=== PATIENT | male | born 1945 | race Caucasian/White ===

== ENCOUNTER → 2018-04-08 09:17 | Outpatient (CLI) | payer MEDICARE, OTHER, SELFPAY ==
--- NOTE | 2018-04-08 09:22 | CA_ITS ---
PROCEDURE: 2-D M-mode and color Doppler study INDICATIONS FOR THE TEST: Chest pain COPD Heart Murmur Tobacco Smoking Palpitations Fatigue Syncope Edema Hypertension+Diabetes Mellitus Rheumatic Fever SOB MARTINEZ Obesity Hyperlipidemia+ Family History HD Additional History CAD,stents PATIENT INFORMATION HEIGHT: 70 WEIGHT:180 GENDER: Male B/P:106/63 2-D/M-MODE INTERPRETATION: 2-D MEASUREMENTS OBSERVED VALUES IN CMS Right Ventricular Dimension (RVDd) 1.1 Interventricular Septum (Thickness)(IVsd) 1.2 Left Ventricular Internal Dimensions(LVIDd) 5.4 Left Ventricular Posterior Wall (Thickness)(LVPWd) 0.7 Aortic Root 3.4 Aortic Cusp Separation 2.1 Left Atrial Dimensions (LAD) 3.4 2D 1. Left atrium is mildly enlarged, left ventricle is normal size, mild concentric left ventricular hypertrophy, visually estimated ejection fraction 55% with no regional wall motion abnormality. 2. The right atrium and right ventricle are normal size and contractility. 3. The aortic valve is thickened and calcified leaflet continue to display mobility. 4. The mitral and tricuspid valve leaflets are minimally thickened. 5. The pulmonic valve is poorly visualized. 6. No significant pericardial effusion noted. DOPPLER INTERROGATION: Doppler interrogation of the aortic, mitral and tricuspid valvular presence of mild aortic, mild mitral and tricuspid regurgitation. Tricuspid regurgitation jet velocity is inadequate for calculation of the right ventricular systolic pressure, grade 1 diastolic dysfunction seen without tissue Doppler evidence of raised left atrial pressure. CONCLUSION: 1. Left atrium is mildly enlarged, normal left ventricular size, mild concentric left ventricular hypertrophy, visually estimated ejection fraction 55% with no regional wall motion abnormality, grade 1 diastolic dysfunction seen without tissue Doppler evidence of raised left atrial pressure. 2. Mild aortic, mild mitral and tricuspid regurgitation. 3. No significant pericardial effusion noted.
== END ==
PROVIDERS: PCP Family Medicine; Visit Provider Internal Medicine
DX: I50.32 Chronic diastolic (congestive) heart failure (principal)
CPT/HCPCS: 93306

== ENCOUNTER → 2018-04-10 11:54 | Outpatient (CLI) | payer MEDICARE, OTHER, SELFPAY ==
--- NOTE | 2018-04-10 11:58 | NM_ITS ---
SPECT MYOCARDIAL PERFUSION SCAN, REST AND STRESS: EXERCISE STRESS: [facility] REVIEW QGS EF AND WALL MOTION EVALUATION: QPS - PERFUSION EVALUATION: HISTORY: CAD, Hx of TN, HTN, F/U stent PROCEDURE: Rest imaging performed after administration of10.62 millicuries Tc MIBI. Dose administered at12:15 p.m., with imaging thereafter. Stress imaging was then performed following6 minutes 46 seconds of exercise stress. The patient achieved a heart [id number] with projected heart rate of125 . Resting BP140/85 with stress 170/80. At maximum exercise stress,30.7 millicuries Tc MIBI administered at2:30 p.m. with [id number] minutes thereafter. FINDINGS: Perfusion Evaluation: The single slice spect images as well as the [facility] bull's-eye data summary were reviewed. Wall Motion and Ejection Fraction Evaluation: Gated SPECT review and analysis used to evaluate these features. There is a 52 % left ventricular ejection fraction. There seems to be good wall motion Stress images reveal decreased activity in the apex and lateral wall. Inferior wall is also mildly diminished. Rest images reveal improved activity in the above areas IMPRESSION: Reversible ischemia in the apex lateral wall and inferior wall. High risk abnormal stress test, need by normal ejection fraction and normal wall motion
--- NOTE | 2018-04-10 14:42 | HMH.ITSHM ---
Current Home Medications as stated by this patient Nahun Massey or insurance sales representative. []asa losartan carvedilol rivaroxaban
== END ==
PROVIDERS: PCP Family Medicine; Visit Provider Internal Medicine
DX: I50.32 Chronic diastolic (congestive) heart failure (principal); E78.5 Hyperlipidemia, unspecified; I25.10 Atherosclerotic heart disease of native coronary artery without angina pectoris
CPT/HCPCS: 78452; 93017; A9502

== ENCOUNTER → 2020-02-16 10:11 | Outpatient (CLI) | payer MEDICARE, BC, SELFPAY ==
--- NOTE | 2020-02-16 10:14 | CA_ITS ---
APPROVED REPORT EXAM: Comprehensive 2D, Doppler, and color-flow Echocardiogram Brine Process Operator: Ciara Celestin RDCS Ht: 5 ft 10 in Wt: 168lbs BSA: 1.94 BP: 114/70 mmHg Indications: PRE OP EVAL TONIO,CAD,HTN 2D Dimensions LVOT 2.20 cm (M/F) 1.5-2.5 M-Mode Dimensions RVDd 3.02 cm (0.9-2.6) LA Diam 3.39 cm (1.9-4.0) LVDd 5.28 cm (3.5-5.7) Ao Diam 3.79 cm (2.0-3.7) LVDs 4.19 cm (3.5-5.7) IVSd 1.13 cm (0.6-1.1) PWd 0.81 cm (0.6-1.1) EF (Teich) 41.80% FS 20.60% EDV (Teich) 134.20 mL ESV (Teich) 78.10 mL LV Diastology E Decel Time 203.00 (160-240 msec) E/A Ratio 0.6 MED E' 5.20 (< 7 cm/sec) E'/MED E' Ratio 5.56 (>14) LAT E' 6.20 (<10 cm/sec) E/LAT E' Ratio 4.66 (>14) Aortic Valve AI PHT 720.00 ms Mitral Valve MV E Max Wali. 29.00 (40-130 cm/s) MV A Velocity 50.00 (40-130 cm/s) E/A Ratio 0.57 MV Decel. Time 203.00 (160-240 ms) MV PHT 60.00 ms Left Ventricle Left atrium is mildly enlarged, left ventricle is normal size, mild concentric left ventricular hypertrophy, visually estimated ejection fraction 55% with no regional wall motion abnormality, grade 1 diastolic dysfunction seen without tissue Doppler evidence of raise left atrial pressure. Right Ventricle Right atrium and right ventricle mildly enlarged with normal contractility. Aortic Valve Aortic valve is minimally thickened and fibrosed, there is no aortic stenosis, there is mild aortic insufficiency. Mitral Valve Mitral valve is grossly normal, there is mild mitral regurgitation. Tricuspid Valve Tricuspid valve is grossly normal, there is mild tricuspid regurgitation, tricuspid regurgitation jet velocity is inadequate for calculation of the right ventricular systolic pressure. Pulmonic Valve Pulmonic valve is poorly visualized. Great Vessels Aortic root is normal size. Pericardium Trivial pericardial effusion noted. Conclusion 1. Mild biatrial enlargement, normal left ventricular size, mild concentric left ventricular hypertrophy, visually estimated ejection fraction 55% with no regional wall motion abnormality, grade 1 diastolic dysfunction seen without tissue Doppler evidence of raise left atrial pressure. 2. Mildly enlarged right ventricle with normal contractility. 3. Mild aortic, mild mitral and tricuspid regurgitation. 4. No significant pericardial effusion noted. Electronically signed by : Sav Zaragoza, 02/17/2020 15:59:20
== END ==
PROVIDERS: PCP Family Medicine; Visit Provider Urology
DX: I11.0 Hypertensive heart disease with heart failure (principal); I11.9 Hypertensive heart disease without heart failure; I25.10 Atherosclerotic heart disease of native coronary artery without angina pectoris; I47.2 Ventricular tachycardia; I50.30 Unspecified diastolic (congestive) heart failure; Z01.810 Encounter for preprocedural cardiovascular examination
CPT/HCPCS: 93306

== ENCOUNTER → 2021-07-17 15:22 | Outpatient (CLI) | payer MEDICARE, BC, SELFPAY ==
--- NOTE | 2021-07-17 15:53 | CT_ITS ---
FINAL REPORT CLINICAL HISTORY: HEMATURIA FINDINGS: Technique: Axial images through the abdomen and pelvis were performed by computed tomography. This study was performed with techniques to keep radiation doses as low as reasonably achievable (ALARA). Individualized dose reduction techniques using automated exposure control or adjustment of mA and/or kV according to the patient's size were employed. Abdomen: The lung bases are clear. The liver parenchyma is homogeneous. The gallbladder is absent. The spleen is unremarkable. The pancreas is normal. The adrenals are normal. The aorta is normal in caliber. There are multiple small bilateral nonobstructing kidney stones measuring approximately 2 mm. There is a dominant cystic focus in the superior left kidney measuring 3.2 cm. Pelvis: The appendix is normal. There is mild diverticulosis of the descending and sigmoid colon without evidence of diverticulitis. There is an enlarged prostate measuring 6.9 x 5.3 cm. The urinary bladder is unremarkable. There is no free fluid or adenopathy. IMPRESSION: Multiple bilateral nonobstructing renal stones. Dominant cystic focus in the left kidney. Markedly enlarged prostate. Please correlate with PSA and physical exam. Reviewed, Interpreted and Dictated by Karthik Bender MD Transcribed by Khadijah Taylor Authenticated by Karthik Bender MD on 07/17/2021 04:44:38 PM [facility]
[2021-07-17 16:13] LABS: Blood Urea Nitrogen 18 mg/dl (9-20); Estimated Glomerular Filt Rate 59 ml/min (>60); GFR (African American) 71 ML/MIN (>60)
== END ==
PROVIDERS: PCP Family Medicine; Visit Provider Urology
DX: R31.9 Hematuria, unspecified (principal); R97.20 Elevated prostate specific antigen [PSA]; Z01.812 Encounter for preprocedural laboratory examination; Z11.52 Encounter for screening for COVID-19
CPT/HCPCS: 36415; 74176; 82565; 84520; C9803; U0003; U0005

== ENCOUNTER 2021-07-20 07:55 | Day surgery (SDC) | payer MEDICARE, BC, SELFPAY ==
[2021-07-18 11:35] VITALS: BMI 24.3
[2021-07-20 08:10] VITALS: BP 148/71; PULSE 74; RESP 20; TEMP 36.5; O2SAT 97
[2021-07-20 09:53] VITALS: BP 155/88; PULSE 71; RESP 18; TEMP 36.6; O2SAT 99
[2021-07-20 10:20] VITALS: BP 155/88; PULSE 71; RESP 18; TEMP 36.6; O2SAT 99
--- NOTE | 2021-07-20 12:52 | P.OP_ITS ---
Date of procedure: 07/20/21 Pre-op Diagnosis:: Gross hematuria Post-op Diagnosis:: Gross hematuria from prostatic adenoma Procedure performed:: Cystoscopy Surgeon:: Eliecer West MD Anesthesia: local Estimated blood loss (mL): 1 Clinical Note:: Patient is a 76-year-old white male with history of a right-sided DVT recently placed on Xarelto. He had already been on Plavix and aspirin. He states that within 24 hours he began having grossly bloody urine. He contacted his urologist in [place] who scheduled a cystogram by report but patient feels like he needs to be seen sooner and Dr. Hammer has referred him to to me for evaluation. CT scan was performed without contrast showing couple of small stones in each kidney but no evidence of obstruction. There was a 3.2 cm cyst in the left kidney and a markedly enlarged prostate measured 6.9 x 5.3 cm. The bladder appeared normal. Patient presents for cystoscopic evaluation today. He has been taken off of Plavix and aspirin continues on Xarelto and he states there has been some improvement in the hematuria. Operative findings:: Patient with trilobar hyperplasia and very friable prostate that bled easily with passage of the scope. There is no evidence of bladder tumors. There was trabeculation and cellule formation in the base of the bladder. Operative note:: Patient taken to the cystoscopy suite after informed consent was obtained. On the stretcher is prepped draped in the standard surgical fashion and 2% lidocaine placed into the urethra. After 5 minutes the flexible cystoscope introduced into the urethral meatus. Passed to the prostatic urethra which showed trilobar hyperplasia. Patient was noted to be more comfortable than most with the procedure. His discomfort did improve once the scope entered the bladder. The bladder was examined in a systematic fashion. There is no evidence of bladder tumors. There was some bleeding from the bladder neck and the prostatic tissue. There was trabeculation and cellule formation in the bladder base. Ureteral orifices in normal anatomic position with clear efflux of urine. Scope was retroflexed showing bleeding from the prostatic tissue. Scope then removed. Patient voided on the stretcher right after with blood- tinged urine. He was transported to the recovery suite and we discussed the findings with him and his . I told him that the bleeding appears to be coming from the prostate he was a bit concerned that there was more blood now been before and we discussed that the prostate bleeds very easily with instrumentation. He was advised to drink plenty of fluids today and restrict any strenuous activities for a few days. We discussed that the Xarelto is a complicating factor in patients with very large friable prostate. I am going to place him on a course of finasteride to help with the prostate bleeding. I am also going to place him on a course of tamsulosin as his stream is very weak upon voiding. Surprisingly he does not state a lot of voiding difficulties but I definitely feel he can benefit from the medications. Patient does have a history of elevated PSA has seen Dr. Winkler for several years in [place]. His most recent PSA was reported to 6 and this is likely from his very enlarged prostate gland. We discussed that the finasteride will decrease his PSA by half in the future. Condition: stable Disposition: same day Specimens:: None Complications:: None
== END 2021-07-20 10:20 | disposition home or self-care (01) ==
LOC: OUTP 07:56
PROVIDERS: PCP Family Medicine; Visit Provider Urology
DX: D29.1 Benign neoplasm of prostate (principal); R31.0 Gross hematuria; N20.0 Calculus of kidney; N28.1 Cyst of kidney, acquired; I25.10 Atherosclerotic heart disease of native coronary artery without angina pectoris; E78.5 Hyperlipidemia, unspecified; I10 Essential (primary) hypertension; Z88.8 Allergy status to other drugs, medicaments and biological substances; Z79.899 Other long term (current) drug therapy
CPT/HCPCS: 52000

== ENCOUNTER → 2022-05-21 09:24 | Outpatient (CLI) | payer MEDICARE, BC, SELFPAY ==
--- NOTE | 2022-05-21 09:29 | CA_ITS ---
APPROVED REPORT EXAM: Comprehensive 2D, Doppler, and color-flow Echocardiogram Signing Teacher: Ida Avalos RT(R) Ht: 5 ft 10 in Wt: 179lbs BSA: 1.99 BP: 132/76 mmHg Indications: SOB, HTN, hyperlipidemia, CAD, tachycardia, CHF, hx of DVT 2D Dimensions LVOT 2.06 cm (M/F) 1.5-2.5 M-Mode Dimensions RVDd 2.21 cm (0.9-2.6) LA Diam 3.51 cm (1.9-4.0) LVDd 5.25 cm (3.5-5.7) Ao Diam 3.35 cm (2.0-3.7) LVDs 4.09 cm (3.5-5.7) IVSd 0.88 cm (0.6-1.1) PWd 0.72 cm (0.6-1.1) EF (Teich) 44.30% FS 22.10% EDV (Teich) 132.40 mL ESV (Teich) 73.80 mL LV Diastology E Decel Time 150.00 (160-240 msec) E/A Ratio 0.6 MED E' 11.10 (< 7 cm/sec) E'/MED E' Ratio 2.95 (>14) LAT E' 8.70 (<10 cm/sec) E/LAT E' Ratio 3.77 (>14) Mitral Valve MV E Max Wali. 33.00 (40-130 cm/s) MV A Velocity 54.00 (40-130 cm/s) E/A Ratio 0.60 MV Decel. Time 150.00 (160-240 ms) MV PHT 44.00 ms Left Ventricle Technically difficult study because of the patient factors and poor acoustic windows. Left atrium is mildly enlarged, left ventricle is mildly dilated, estimated ejection fraction 50% with no regional wall motion abnormality, diastolic parameters are inconclusive. Right Ventricle Right atrium and right ventricle are mildly enlarged with normal contractility. Aortic Valve Aortic root appears to be mildly enlarged, aortic valve is trileaflet, there is no aortic stenosis, there is aortic insufficiency present which is difficult to quantify is likely in the moderate range. Mitral Valve Mitral valve leaflets are minimally thickened, there is mild mitral regurgitation. Tricuspid Valve Tricuspid valve is grossly normal, there is mild tricuspid regurgitation, tricuspid regurgitation jet velocity is inadequate for calculation of the right ventricular systolic pressure. Pulmonic Valve Pulmonic valve is poorly visualized. Great Vessels Aortic root is normal size. Inferior vena cava is poorly visualized. Pericardium No significant pericardial effusion noted. Conclusion 1. Mild biatrial enlargement, mildly dilated left ventricle, estimated ejection fraction 50% with no obvious regional wall motion abnormality, endocardial surfaces are poorly visualized, diastolic parameters are inconclusive. 2. Mildly enlarged right ventricle with normal contractility. 3. Mildly dilated aortic root and ascending aorta, there is aortic insufficiency present which is difficult to quantify, this is likely in the moderate range, if clinically indicated, transesophageal echocardiogram is recommended. 4. Mild mitral and tricuspid regurgitation. 5. No significant pericardial effusion noted. 6. Inferior vena cava is poorly visualized. Electronically signed by : Sav Zaragoza MD 05/22/2022 05:50:12
== END ==
LOC: RT 09:25
PROVIDERS: PCP Family Medicine; Visit Provider Internal Medicine
DX: I11.0 Hypertensive heart disease with heart failure (principal)
CPT/HCPCS: 93306